=== PATIENT | male | born 1995 | race African-American/Black ===

== ENCOUNTER 2019-03-22 11:12 | Emergency (ER) | payer OTHER ==
[~2019-03-22] VITALS: Ht 188 cm; Wt 104.5 kg
[2019-03-22] MEDS ORDERED: KETOROLAC TROMETHAMINE 60 MG/2 ML VIAL IM ONE (11:45)
[2019-03-22] MEDS ORDERED: NAPROSYN500 MG PO (12:04)
[2019-03-22] MEDS ORDERED: CYCLOBENZAPRINE5 MG PO (12:05)
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
== END 2019-03-22 13:50 | disposition home or self-care (01) ==
LOC: FSED 11:12
DX: M54.2 Cervicalgia (principal); M54.6 Pain in thoracic spine; M54.5 Low back pain; M25.521 Pain in right elbow; S16.1XXA Strain of muscle, fascia and tendon at neck level, initial encounter; S23.3XXA Sprain of ligaments of thoracic spine, initial encounter; S39.012A Strain of muscle, fascia and tendon of lower back, initial encounter; S33.5XXA Sprain of ligaments of lumbar spine, initial encounter; V43.52XA Car driver injured in collision with other type car in traffic accident, initial encounter; Y92.488 Other paved roadways as the place of occurrence of the external cause
CPT/HCPCS: 72070; 72100; 72125; 73080; 99284; J1885